=== PATIENT | female | born 1960 | race Hispanic/Latino ===

== ENCOUNTER 2023-12-07 12:29 | Emergency (ER) | payer SELFPAY ==
[~2023-12-07] VITALS: Ht 162.6 cm; Wt 68.0 kg
[2023-12-07 12:43] VITALS: PULSE 64; RESP 16; TEMP 97.8; O2SAT 98
== END 2023-12-07 15:39 | disposition home or self-care (01) ==
LOC: ER 15:16
DX: S93.491A Sprain of other ligament of right ankle, initial encounter (principal); M25.521 Pain in right elbow; M25.551 Pain in right hip; W01.0XXA Fall on same level from slipping, tripping and stumbling without subsequent striking against object, initial encounter; Y93.01 Activity, walking, marching and hiking; Y92.89 Other specified places as the place of occurrence of the external cause
CPT/HCPCS: 99282